=== PATIENT | male | born 1985 | race Hispanic/Latino ===

== ENCOUNTER 2018-05-25 23:13 | Observation (INO) | payer OTHER ==
[~2018-05-25] VITALS: Ht 175.3 cm; Wt 102.6 kg
--- NOTE | 2018-05-25 23:45 | NUR ---
PATIENT TO ROOM VIA EMS AND STRETCHER. PATIENT DENIES ANY COMPLAINTS OF CHEST PAIN OR DISCOMFORT AT PRESENT. PATIENT ORIENTED TO ROOM AND CALL CONNO[facility]. 2344-PAGE SENT TO [facility] 2355-[facility] TECHNICIAN RETURNED CALL, APPRAISED OF PATIENTS ARRIVAL.
[2018-05-25 23:59] VITALS: BP 146/83
[2018-05-26] MEDS ORDERED: MORPHINE SULFATE 4 MG/1ML SYG IV PRN (00:15)
[2018-05-26] MEDS ORDERED: HYDRALAZINE HCL 20 MG/ML VIAL IV PRN (00:15)
[2018-05-26] MEDS ORDERED: ACETAMINOPHEN 325 MG TAB PO PRN ×2 (00:15)
[2018-05-26] MEDS ORDERED: ONDANSETRON HCL 4 MG/2 ML VIAL IV PRN (00:15)
[2018-05-26] MEDS: NITROGLYCERIN 1GM/1 INCH PACKET TD SCH ×3 (00:31→17:00)
[2018-05-26 00:45] LABS: BASOPHILS % (AUTO) 0.3 % (0.0-5.0); EOSINOPHILS % (AUTO) 0.6 % (0.0-8.0); LYMPHOCYTES % (AUTO) 38.8 % (21.0-51.0); MEAN CORPUSCULAR HEMOGLOBIN 31.9 pg (27.0-33.0); MEAN CORPUSCULAR HGB CONC 34.7 g/dL (32.0-36.0); MONOCYTES % (AUTO) 5.8 % (3.0-13.0); NEUTROPHILS % (AUTO) 54.5 % (40.0-77.0); NUCLEATED RED BLOOD CELLS 0.2 % (0.0-0.19); PLATELET COUNT (AUTO) 196 K/uL (130-400); RED CELL DISTRIBUTION WIDTH 13.6 % (11.0-15.5); WHITE BLOOD COUNT (AUTO) 8.1 K/uL (4.8-10.8)
[2018-05-26 01:01] LABS: ALANINE AMINOTRANSFERASE 22 U/L (12-78); ALBUMIN 3.7 g/dL (3.5-5.0); ASPARTATE AMINOTRANSFERASE 18 U/L (10-37); BILIRUBIN,TOTAL 0.6 mg/dL (0.2-1.0); CARBON DIOXIDE 28 mmol/L (21-32); CHLORIDE 104 mmol/L (101-111); CREATINE KINASE, TOTAL 96 U/L (21-232); CREATININE 1.1 mg/dL (0.5-1.5); GLOMERULAR FILTR. RATE CALC 81 mL/min (>60); GLUCOSE,RANDOM 123 mg/dL (70-105); MYOGLOBIN 44 ng/mL (10-92); POTASSIUM 3.7 mmol/L (3.5-5.1); SODIUM SERUM 139 mmol/L (136-145); TOTAL PROTEIN, SERUM 7.1 g/dL (6.0-8.3); TROPONIN I < 0.04 ng/mL (0.00-0.06); UREA NITROGEN, BLOOD 10 mg/dL (7-18)
[2018-05-26 04:23] VITALS: BP 119/64
[2018-05-26 07:00] VITALS: BP 108/61
--- NOTE | 2018-05-26 08:30 | NUR ---
AM ASSESSMENT PT LAYING IN BED, WATCHING TV. FAMILY @ BEDSIDE. A/O X 3. NO SOB. NO DISTRESS NOTED. DENIES CHEST PAIN OR DISCOMFORT. DENIES PALPITATIONS. TELE: [id number]. DENIES N/V AND/OR DIARRHEA. PT DENIES TAKING ANY PRESCRIBED MEDICATIONS @ HOME. UP AD JOSE. INSTRUCTED TO CALL FOR ASSISTANCE. CALL CATHLEEN W/IN REACH.
[2018-05-26] MEDS: ENOXAPARIN SODIUM 30 MG/0.3 ML SQ SCH ×2 (08:32→20:01)
[2018-05-26] MEDS: FAMOTIDINE/PF 20 MG/2 ML VIAL IV SCH ×2 (08:36→20:00)
[2018-05-26] MEDS ORDERED: ASPIRIN 325 MG TABLET PO SCH (09:00)
[2018-05-26 09:01] LABS: AMPHET/METH SCREEN,URINE NEGATIVE (NEGATIVE); BARBITURATE SCREEN, URINE NEGATIVE (NEGATIVE); BENZODIAZEPINES SCREEN,URINE NEGATIVE (NEGATIVE); CANNABINOID SCREEN,URINE NEGATIVE (NEGATIVE); COCAINE SCREEN,URINE NEGATIVE (NEGATIVE); OPIATE SCREEN,URINE NEGATIVE (NEGATIVE); PHENCYCLIDINE SCREEN,URINE NEGATIVE (NEGATIVE)
[2018-05-26 09:15] LABS: CREATINE KINASE, TOTAL 81 U/L (21-232); MYOGLOBIN 40 ng/mL (10-92); TROPONIN I < 0.04 ng/mL (0.00-0.06)
[2018-05-26 11:00] VITALS: BP 112/60
[2018-05-26 16:00] VITALS: BP 122/69
[2018-05-26 17:23] LABS: CREATINE KINASE, TOTAL 80 U/L (21-232); MYOGLOBIN 31 ng/mL (10-92); TROPONIN I < 0.04 ng/mL (0.00-0.06)
[2018-05-26 19:00] VITALS: BP 123/66
[2018-05-26] MEDS ORDERED: PANT40TA PO (20:23)
--- NOTE | 2018-05-26 21:00 | NUR ---
PATIENT RECEIVED DISCHARGE INSTRUCTIONS, PATIENT VERBALIZED UNDERSTANDING. NEW SCRIPT SENT WITH PATIENT, VERBALIZED UNDERSTANDING OF TAKING MED AND RECEIVED INFORMATION ON MEDICATION. DISCHARGED TO HOME VIA PRIVATE CAR.
== END 2018-05-26 21:01 | disposition home or self-care (01) ==
LOC: 2DH 23:44
PROVIDERS: ADMIT Internal Medicine; ATTEND Internal Medicine
DX: R07.89 Other chest pain (principal); G93.9 Disorder of brain, unspecified; Z82.5 Family history of asthma and other chronic lower respiratory diseases; Z79.899 Other long term (current) drug therapy; Z98.41 Cataract extraction status, right eye
CPT/HCPCS: 36415; 71045; 80053; 80305; 82550 ×3; 83874 ×3; 84484 ×3; 85025; 93005 ×3; 96372; 96374; G0378 ×22; J1650 ×2; J3490 ×2